=== PATIENT | male | born 1980 | race Two or more races ===

== ENCOUNTER 2020-11-06 15:23 | Emergency (ER) | payer SELFPAY ==
[~2020-11-06] VITALS: Ht 170.2 cm; Wt 79.4 kg
[2020-11-06] MEDS: Tetanus/Diptheria/Pertussis IM ONE (15:45)
[2020-11-06 16:02] VITALS: BP 120/76
--- NOTE | 2020-11-06 16:23 | NUR ---
ED Nurse Note: pt has [employer] in his room and outside room. pt fell and hit the right side of his head on some wood. police stated that he had been tased. pt refused the tdap shot. he stated he wanted to let the drugs he was given to go out of his body first. pt refusing ct
--- NOTE | 2020-11-06 17:08 | NUR ---
ER DISCHARGE NOTE: Patient is cleared to be discharged per ERMD, pt is aox4, on room air, with stable vital signs. pt was given dc instructions, pt was able to verbalize understanding. pt is able to ambulate with steady gait. pt took all belongings.
--- NOTE | 2020-11-06 17:08 | NUR ---
ED Nurse Note: cleansed pt's right side of buddhist with saline and 4x4
--- NOTE | 2020-11-06 21:57 | Emergency Room Report ---
History of Present Illness General Chief Complaint: Behavioral Complaint Source: Patient Present Illness HPI 40-year-old male brought in in police custody after being tased and falling on the ground. Patient was tased after he got into an altercation with police. The taser was hit his right arm. Hit the ground and fell onto the right half of his face. No loss of consciousness. Patient adamantly refusing any medications or imaging. He has no complaints at this time. Allergies: Coded Allergies: UNABLE TO ASSESS (Unverified , 11/06/20) COVID-19 Screening Contact w/high risk pt: No Experienced COVID-19 symptoms?: No COVID-19 Testing performed SENIOR GIS ANALYST: No Review of Systems All Other Systems: negative except mentioned in HPI Physical Exam Vital Signs Date Time Temp Pulse Resp B/P (MAP) Pulse Ox O2 Delivery O2 Flow Rate FiO2 11/06/20 15:19 98.2 102 14 120/76 (91) 96 Room Air Sp02 EP Interpretation: reviewed, normal General Appearance: no apparent distress, alert, GCS 15, non-toxic Head: normocephalic, other - Superficial abrasions right forehead. Otherwise no trauma. Awake and alert with normal neurologic examination. No cervical spine tenderness. Normal neurologic examination Eyes: bilateral eye normal inspection, bilateral eye PERRL ENT: hearing grossly normal, normal pharynx, no angioedema, normal voice Neck: full range of motion, supple/symm/no masses Respiratory: chest non-tender, lungs clear, normal breath sounds, speaking full sentences Cardiovascular #1: regular rate, rhythm, no edema Cardiovascular #2: 2+ carotid (R), 2+ carotid (L), 2+ radial (R), 2+ radial (L), 2+ dorsalis pedis (R), 2+ dorsalis pedis (L) Gastrointestinal: normal bowel sounds, non tender, soft, non-distended, no guarding, no rebound Rectal: deferred Genitourinary: normal inspection, no CVA tenderness Musculoskeletal: back normal, normal range of motion, calf tenderness, gait/station normal, non-tender Neurologic: alert, motor strength/tone normal, oriented x3, sensory intact, responsive, speech normal Psychiatric: judgement/insight normal, memory normal, mood/affect normal, no suicidal/homicidal ideation Reflexes: 3+ bicep (R), 3+ bicep (L), 3+ tricep (R), 3+ tricep (L), 3+ knee (R), 3+ knee (L) Lymphatic: no adenopathy Medical Decision Making Diagnostic Impression: Primary Impression: Medical clearance for incarceration Additional Impression: Scalp abrasion Qualified Codes: S00.01XA - Abrasion of scalp, initial encounter ER Course 40-year-old male here for medical clearance. Patient had to taser prongs in the sleeve of his right jacket without any penetration in his skin. These were removed easily. He had abrasions on his right forehead. Patient was told that he needs CT scanning to rule out any fractures or other intracranial abnormalities. He was adamantly refusing. Patient normal neurologic examination. Discharged in stable condition. Last Vital Signs Date Time Temp Pulse Resp B/P (MAP) Pulse Ox O2 Delivery O2 Flow Rate FiO2 11/06/20 16:02 98.2 14 120/76 96 Room Air 11/06/20 16:02 102 Disposition: LAW ENFORCEMENT IN CUST Condition: Stable Referrals: NOT CHOSEN IPA/,REFERRING (PCP) [facility]. [facility] Psych ER - Peds ER - Departure Forms: Halfway Clearance Patient Instructions: Medical Screening Exam Additional Instructions: Take medications as directed. Follow up with a Primary Care Provider in 3-5 days, even if your symptoms have resolved. --Please review list of primary care clinics, if you do not already have a primary care provider Return sooner to ED if new symptoms occur, or current symptoms become worse. - Please note that this Emergency Department Report was dictated using [employer] waxing machine operator technology software, occasionally this can lead to erroneous entry secondary to interpretation by the dictation equipment. Senthil Pillai M.D. Nov 06, 2020 21:57
== END 2020-11-06 17:10 ==
LOC: EDBD 15:23 → EMR 17:05
DX: Z02.89 Encounter for other administrative examinations (principal); S00.01XA Abrasion of scalp, initial encounter; W01.198A Fall on same level from slipping, tripping and stumbling with subsequent striking against other object, initial encounter; Y93.89 Activity, other specified; Y92.9 Unspecified place or not applicable
CPT/HCPCS: 90471; 90715; 99282